=== PATIENT | female | born 1935 | race Caucasian/White ===

== ENCOUNTER 2018-03-19 15:31 | Emergency (ER) | payer OTHER, MEDICARE ==
[~2018-03-19] VITALS: Ht 139.7 cm; Wt 53.5 kg
[~2018-03-19 15:31] MED LIST: ALBU8.5H8 INH; AMIT10TA6 PO; CODE118S2 PO; TEMA15CA PO
[2018-03-19 15:37] VITALS: BP_SYST 154
--- NOTE | 2018-03-19 16:00 | NUR ---
Patient to ER bed 7 to gown for evaluation. Side rails up. Report given to Yandel SORTO.
--- NOTE | 2018-03-19 16:10 | NUR ---
Pt presents to ED c/o " not feeling well". Pt had no specific complaint. Pt denies SOB,CP and no acute distress noted at this time.
--- NOTE | 2018-03-19 16:16 | NUR ---
EKG performed at BS by EMT . Physician given copy of EKG for review.
[2018-03-19 16:33] LABS: BASOPHILS % (AUTO) 0.8 % (0.0-2.0); EOSINOPHILS # (AUTO) 0.3 K/uL (0.0-0.4); EOSINOPHILS % (AUTO) 4.7 % (0.0-4.0); HEMATOCRIT 38.1 % (36-48); LYMPHOCYTES # (AUTO) 1.8 K/uL (1.0-5.5); MEAN CORPUSCULAR HEMOGLOBIN 33 pg (27-31); MEAN CORPUSCULAR HGB CONC 34 % (32-36); MEAN CORPUSCULAR VOLUME 96 fL (79.0-98.0); MONOCYTES # (AUTO) 0.5 K/uL (0.0-1.0); MONOCYTES % (AUTO) 10.1 % (1.7-9.3); NEUTROPHILS # (AUTO) 2.7 K/uL (1.8-7.7); NEUTROPHILS % (AUTO) 50.4 % (40.0-70.0); PLATELET COUNT (AUTO) 179 K/uL (130-430); RED BLOOD CELL COUNT(AUTO) 3.99 MIL/uL (4.2-6.2); RED CELL DISTRIBUTION WIDTH 11.7 % (9.0-15.0); WHITE BLOOD COUNT (AUTO) 5.3 K/uL (4.8-10.8)
--- NOTE | 2018-03-19 16:40 | NUR ---
ER at bedside examining patient.
[2018-03-19 16:49] LABS: ANION GAP 4 (5-15); CALCIUM 9.3 mg/dL (8.4-11.0); CHLORIDE 99 mmol/L (98-107); GLUCOSE 112 mg/dL (70-99); POTASSIUM 3.9 mmol/L (3.5-5.1); SODIUM SERUM 132 mmol/L (136-145); UREA NITROGEN, BLOOD 20 mg/dL (8-21)
[2018-03-19 16:51] LABS: PROTHROMBIN TIME 9.9 SECS (9.5-12.5)
[2018-03-19 16:55] LABS: ALANINE AMINOTRANSFERASE 22 U/L (12-78); ALBUMIN 3.5 g/dL (3.4-4.8); ASPARTATE AMINOTRANSFERASE 20 U/L (10-37); TOTAL BILIRUBIN 0.5 mg/dL (0.0-1.0)
[2018-03-19 16:56] LABS: ALCOHOL, BLOOD < 3 mg/dL (<10)
--- NOTE | 2018-03-19 17:00 | NUR ---
Urine specimen collected and sent to lab
[2018-03-19 17:16] LABS: BILIRUBIN,URINE NEGATIVE (NEGATIVE); BLOOD, URINE NEGATIVE (NEGATIVE); CLARITY/URINE SL HAZY (CLEAR); COLOR,URINE YELLOW (YELLOW); GLUCOSE,URINE NEGATIVE (NEGATIVE); KETONES,URINE NEGATIVE (NEGATIVE); LEUKOCYTE ESTERASE ,URINE TRACE (NEGATIVE); NITRITE, URINE POSITIVE (NEGATIVE); PROTEIN URINE NEGATIVE (NEGATIVE); UROBILINOGEN,URINE 0.2 (0.2-1.0)
[2018-03-19 17:36] LABS: BACTERIA,URINE MANY /HPF (None Seen); RBC,URINE 0-3 /HPF (0-3); YEAST,URINE None Seen /HPF (None Seen)
[2018-03-19 17:37] LABS: MUCUS,URINE None Seen /LPF (None Seen)
[2018-03-19 17:50] VITALS: BP_SYST 152
--- NOTE | 2018-03-19 17:50 | NUR ---
Patient given written and verbal discharge instructions and verbalizes understanding. ER MD discussed with patient the results and treatment provided. Patient in stable condition. ID arm band removed. Rx of macrobid given. Patient educated on pain management and to follow up with PMD. Pain Scale 0. Opportunity for questions provided and answered. Medication side effect fact sheet provided.
[2018-03-19 17:55] LABS: UR TRICYCLIC ANTIDEPRESSANTS POSITIVE (NEG <=300)
[2018-03-19 17:56] LABS: BARBITURATE, URINE NEGATIVE (NEG <=200); BENZODIAZEPINE, URINE NEGATIVE (NEG <=150); CANNABINOID, URINE NEGATIVE (NEG <=50); COCAINE, URINE NEGATIVE (NEG <=150); METHAMPHETAMINES SCREEN,URINE NEGATIVE (NEG <=500); OPIATE, URINE NEGATIVE (NEG <=100); PHENCYCLIDINE SCREEN,URINE NEGATIVE (NEG <=25); URINE AMPHETAMINE NEGATIVE (NEG <=500); URINE METHADONE NEGATIVE (NEG <=200); URINE OXYCODONE SCREEN NEGATIVE (NEG <=100); URINE PROPOXYPHENE SCREEN NEGATIVE (NEG <=300)
== END 2018-03-19 17:50 | disposition home or self-care (01) ==
LOC: SED 15:31
DX: N39.0 Urinary tract infection, site not specified (principal); E87.1 Hypo-osmolality and hyponatremia; I10 Essential (primary) hypertension; E78.5 Hyperlipidemia, unspecified; Z90.49 Acquired absence of other specified parts of digestive tract; Z79.899 Other long term (current) drug therapy; Z88.8 Allergy status to other drugs, medicaments and biological substances
CPT/HCPCS: 36415; 71045; 80053; 80307; 81000; 84484; 85025; 85610; 85730; 87086; 93005; 99285; G0482

== ENCOUNTER 2021-01-07 10:23 | Emergency (ER) | payer OTHER, MEDICARE ==
[~2021-01-07] VITALS: Ht 144.8 cm; Wt 52.2 kg
[2021-01-07 10:23] VITALS: BP_SYST 154
--- NOTE | 2021-01-07 10:23 | NUR ---
BROUGHT BACK TO BED #2 AND TRIAGED. REPORT GIVEN TO AMANUEL
--- NOTE | 2021-01-07 10:40 | NUR ---
PT CAME TO THE ER FOR COMPLAINTS OF ABDOMINAL PAIN STARTING TODAY. PAIN IS 5/10. PT STATED SHE VOMITED ONCE ON MONDAY AND CALLED HER PMD, WHO TOLD HER TO COME GET CHECKED OUT IN THE ED.
--- NOTE | 2021-01-07 10:55 | NUR ---
ER at bedside examining patient.
[2021-01-07 11:17] LABS: BASOPHILS % (AUTO) 0.4 % (0.0-2.0); EOSINOPHILS % (AUTO) 0.3 % (0.0-4.0); HEMATOCRIT 38.1 % (36-48); HEMOGLOBIN 13.3 g/dL (12.0-16.0); LYMPHOCYTES # (AUTO) 0.9 K/uL (1.0-5.5); LYMPHOCYTES % (AUTO) 14.2 % (20.5-51.5); MEAN CORPUSCULAR HEMOGLOBIN 32 pg (27-31); MEAN CORPUSCULAR HGB CONC 35 % (32-36); MEAN CORPUSCULAR VOLUME 93 fL (79.0-98.0); MONOCYTES # (AUTO) 0.6 K/uL (0.0-1.0); MONOCYTES % (AUTO) 10.4 % (1.7-9.3); NEUTROPHILS # (AUTO) 4.7 K/uL (1.8-7.7); NEUTROPHILS % (AUTO) 74.7 % (40.0-70.0); PLATELET COUNT (AUTO) 166 K/uL (130-430); RED CELL DISTRIBUTION WIDTH 12.7 % (9.0-15.0); WHITE BLOOD COUNT (AUTO) 6.3 K/uL (4.8-10.8)
[2021-01-07 11:41] LABS: ANION GAP 6 (5-15); CALCIUM 8.4 mg/dL (8.4-11.0); CHLORIDE 90 mmol/L (98-107); CREATININE 0.86 mg/dL (0.55-1.30); GLUCOSE 117 mg/dL (70-99); POTASSIUM 3.2 mmol/L (3.5-5.1); SODIUM SERUM 130 mmol/L (136-145); UREA NITROGEN, BLOOD 22 mg/dL (8-21)
[2021-01-07 11:41] LABS: BILIRUBIN,URINE NEGATIVE (NEGATIVE); BLOOD, URINE NEGATIVE (NEGATIVE); CLARITY/URINE CLEAR (CLEAR); COLOR,URINE YELLOW (YELLOW); GLUCOSE,URINE NEGATIVE (NEGATIVE); KETONES,URINE 1+ (NEGATIVE); LEUKOCYTE ESTERASE ,URINE 1+ (NEGATIVE); NITRITE, URINE NEGATIVE (NEGATIVE); PROTEIN URINE NEGATIVE (NEGATIVE); UROBILINOGEN,URINE 0.2 (0.2-1.0)
[2021-01-07 11:46] LABS: ALANINE AMINOTRANSFERASE 38 U/L (12-78); ALBUMIN 3.6 g/dL (3.4-4.8); AMYLASE 38 U/L (0-100); ASPARTATE AMINOTRANSFERASE 34 U/L (10-37); C-REACTIVE PROTEIN QUANT 0.4 mg/dL (0-0.5); LACTATE DEHYDROGENASE 176 U/L (81-234); LIPASE 56 U/L (73-393); TOTAL BILIRUBIN 0.9 mg/dL (0.0-1.0)
[2021-01-07 11:51] LABS: BACTERIA,URINE RARE /HPF (None Seen); RBC,URINE 0-3 /HPF (0-3)
[2021-01-07] MEDS ORDERED: ONDA-8 TL (12:44)
[2021-01-07] MEDS ORDERED: NACL 0.9% 1,000 ML IV ONE (12:45)
--- NOTE | 2021-01-07 13:03 | NUR ---
Patient given written and verbal discharge instructions and verbalizes understanding. ER MD discussed with patient the results and treatment provided. Patient in stable condition. ID arm band removed. Rx of zofran given. Patient educated on pain management and to follow up with PMD. Pain Scale .0/10 Opportunity for questions provided and answered. Medication side effect fact sheet provided.
[2021-01-07 13:05] VITALS: BP_SYST 136
== END 2021-01-07 13:03 | disposition home or self-care (01) ==
LOC: SED 10:23
DX: R53.1 Weakness (principal); R63.0 Anorexia; R11.2 Nausea with vomiting, unspecified
CPT/HCPCS: 36415; 71045; 76376; 80053; 81000; 82150; 83605; 83615; 83690; 84484; 85025; 85610-TC; 85730-TC; 86140; 87086; 99285

== ENCOUNTER 2021-01-11 08:25 | Emergency (ER) | payer OTHER, MEDICARE ==
[~2021-01-11] VITALS: Ht 142.2 cm; Wt 54.4 kg
[~2021-01-11 08:25] MED LIST changes: +ONDA-8 TL
[2021-01-11 08:41] VITALS: BP_SYST 152
[2021-01-11] MEDS ORDERED: NS 500 ML IV ONE (09:00)
[2021-01-11] MEDS ORDERED: cefTRIAXone 1 GM in D5W 50 ML IV ONE (09:30)
[2021-01-11] MEDS ORDERED: NACL 0.9% 1,000 ML IV ONE ×2 (09:30→12:45)
[2021-01-11] MEDS ORDERED: cefTRIAXone 1 GM VIAL ONE (09:37)
[2021-01-11 09:43] LABS: BASOPHILS % (AUTO) 0.4 % (0.0-2.0); EOSINOPHILS # (AUTO) 0.1 K/uL (0.0-0.4); EOSINOPHILS % (AUTO) 1.6 % (0.0-4.0); HEMATOCRIT 36.7 % (36-48); HEMOGLOBIN 12.5 g/dL (12.0-16.0); LYMPHOCYTES # (AUTO) 1.3 K/uL (1.0-5.5); LYMPHOCYTES % (AUTO) 19.8 % (20.5-51.5); MEAN CORPUSCULAR HEMOGLOBIN 32 pg (27-31); MEAN CORPUSCULAR HGB CONC 34 % (32-36); MEAN CORPUSCULAR VOLUME 95 fL (79.0-98.0); MONOCYTES # (AUTO) 0.7 K/uL (0.0-1.0); MONOCYTES % (AUTO) 11.1 % (1.7-9.3); NEUTROPHILS # (AUTO) 4.5 K/uL (1.8-7.7); NEUTROPHILS % (AUTO) 67.1 % (40.0-70.0); PLATELET COUNT (AUTO) 160 K/uL (130-430); RED BLOOD CELL COUNT(AUTO) 3.88 MIL/uL (4.2-6.2); RED CELL DISTRIBUTION WIDTH 12.4 % (9.0-15.0); WHITE BLOOD COUNT (AUTO) 6.7 K/uL (4.8-10.8)
[2021-01-11 09:44] LABS: ANION GAP 9 (5-15); CALCIUM 9.2 mg/dL (8.4-11.0); CHLORIDE 91 mmol/L (98-107); CREATININE 1.02 mg/dL (0.55-1.30); GLUCOSE 107 mg/dL (70-99); POTASSIUM 3.9 mmol/L (3.5-5.1); SODIUM SERUM 128 mmol/L (136-145); UREA NITROGEN, BLOOD 28 mg/dL (8-21)
[2021-01-11 09:48] LABS: PROTHROMBIN TIME 9.8 SECS (9.5-12.5)
[2021-01-11 09:51] LABS: ALANINE AMINOTRANSFERASE 62 U/L (12-78); ALBUMIN 3.6 g/dL (3.4-4.8); ASPARTATE AMINOTRANSFERASE 61 U/L (10-37); TOTAL BILIRUBIN 0.8 mg/dL (0.0-1.0)
[2021-01-11 09:52] LABS: ALCOHOL, BLOOD < 3 mg/dL (<10)
[2021-01-11 10:19] LABS: BILIRUBIN,URINE NEGATIVE (NEGATIVE); BLOOD, URINE NEGATIVE (NEGATIVE); CLARITY/URINE CLEAR (CLEAR); COLOR,URINE YELLOW (YELLOW); GLUCOSE,URINE NEGATIVE (NEGATIVE); KETONES,URINE NEGATIVE (NEGATIVE); LEUKOCYTE ESTERASE ,URINE NEGATIVE (NEGATIVE); NITRITE, URINE NEGATIVE (NEGATIVE); PH,URINE 5.5 (5.0-8.0); PROTEIN URINE NEGATIVE (NEGATIVE); UROBILINOGEN,URINE 0.2 (0.2-1.0)
[2021-01-11 10:45] LABS: BARBITURATE, URINE NEGATIVE (NEG <=200); BENZODIAZEPINE, URINE NEGATIVE (NEG <=150); CANNABINOID, URINE NEGATIVE (NEG <=50); COCAINE, URINE NEGATIVE (NEG <=150); METHAMPHETAMINES SCREEN,URINE NEGATIVE (NEG <=500); OPIATE, URINE NEGATIVE (NEG <=100); PHENCYCLIDINE SCREEN,URINE NEGATIVE (NEG <=25); URINE AMPHETAMINE NEGATIVE (NEG <=500); URINE METHADONE NEGATIVE (NEG <=200); URINE OXYCODONE SCREEN NEGATIVE (NEG <=100); URINE PROPOXYPHENE SCREEN NEGATIVE (NEG <=300)
[2021-01-11 10:46] LABS: UR TRICYCLIC ANTIDEPRESSANTS POSITIVE (NEG <=300)
[2021-01-11] MEDS ORDERED: CEFU250T85 PO (14:15)
[2021-01-11 14:24] VITALS: BP_SYST 140
== END 2021-01-11 14:25 | disposition home or self-care (01) ==
LOC: SED 08:25
DX: S70.11XA Contusion of right thigh, initial encounter (principal); E87.1 Hypo-osmolality and hyponatremia; E86.0 Dehydration; N39.0 Urinary tract infection, site not specified; B96.20 Unspecified Escherichia coli [E. coli] as the cause of diseases classified elsewhere; I10 Essential (primary) hypertension; Z88.8 Allergy status to other drugs, medicaments and biological substances; Z79.899 Other long term (current) drug therapy; W18.39XA Other fall on same level, initial encounter; Y93.89 Activity, other specified; Y92.89 Other specified places as the place of occurrence of the external cause; Y99.8 Other external cause status
CPT/HCPCS: 36415; 70450; 76376; 80053; 80307; 81003; 83605; 84484; 85025; 85610; 85730; 87040; 96361; 96365; 99285; G0481; G0482; J0696; J7030; 93005